=== PATIENT | male | born 1945 | race Caucasian/White ===

== ENCOUNTER → 2017-05-06 | Outpatient (CLI) | payer OTHER ==
[2013-11-06 12:01] VITALS: BP 133/88
--- NOTE | 2017-05-06 11:16 | CT ---
STUDY: CT HEAD WITHOUT CONTRAST HISTORY: Dizziness. Headache, nausea, memory loss. COMPARISON: Head CT dated November 06, 2013. TECHNIQUE: Multiple axial images of the head were obtained from the skull base to the vertex without administration of IV contrast. Automated exposure control (AEC) was utilized to adjust the MA and/o r kV. Findings: The sulci, cisterns and ventricles are age appropriate. There are a few scattered foci of low attenuation in the periventricular and subcortical white matter of both hemispheres. This is a n onspecific finding which likely represents microangiopathic change in a patient of this age. There is no evidence of acute territorial infarction, hemorrhage, mass, mass effect or midline shift . There are no abnormal extra-axial fluid collections. There is no evidence of acute osseous abnormality or significant soft tissue swelling. IMPRESSION: 1. No evidence of acute intracranial abnormality. 2. Nonspecific white matter change as described. 3. If there remains strong clinical concern for acute intracranial abnormality, then an MRI examinat ion should be considered for further evaluation. Reported By:
== END ==
LOC: RAD 08:38
PROVIDERS: ATTEND Internal Medicine
DX: R42 Dizziness and giddiness (principal); G43.909 Migraine, unspecified, not intractable, without status migrainosus; R41.3 Other amnesia
CPT/HCPCS: 70450

== ENCOUNTER 2017-05-26 19:24 | Observation (INO) | payer OTHER ==
[2017-05-26] MEDS ORDERED: ASPIRIN PO ONE (19:28)
--- NOTE | 2017-05-26 19:32 | DR.AMS ---
HPI - Time Seen Time seen: 19:30 - Complaint Cheif Complaint Doctors Comments: patient feeling weak, chest pain and jaw pain after working in 100+ heat index weather.EMS called to house as unresponsive but breathing. Patient took phenergan and some tequila when he came in out of heat. - Reviewed Nurses Notes Reviewed: Yes - Source History Provided: Patient, EMS - Mode of Arrival Mode of Arrival: EMS - Timing Came On: Gradually Symptoms: Improving Symptom Onset: Known - Duration Duration: Constant How lon Duration: Hours - Quality Quality: Decreased Alertness - Severity Severity: Moderate - Context Recent: None - Associated Signs and Symptoms Associated Signs and Symptoms: Generalized Weakness, Decreased LOC - Other History Other History: spine stimulator, Rx: xanax <KARINA STONE - Last Filed: 05/26/17 19:44> PMH - PMH Past Medical History: Anxiety, Coronary Artery Disease, Hypertension Past Surgical History: Yes Surgical History: CABG/Valve Surgery, Other - Social History Do you use any recreational Drugs:: No <KARINA STONE - Last Filed: 05/26/17 19:44> ROS - Review of Systems Constitutional: Weakness Eyes: No Symptoms Reported Respiratoy: No Symptoms Reported Cardiovascular: Chest Pain Gastrointestinal/Abdominal: Nausea Genitourinary: No Symptoms Reported Neurological: Weakness Musculoskeletal: No Symptoms Reported Integumentary: Other (diaphoretic at scene) Hematologic/Lymphatic: No Symptoms Reported Endocrine: No Symptoms Reported Psychiatric: Anxiety <KARINA STONE - Last Filed: 05/26/17 19:44> PE - General Limitations: No Limitations General Appearance: Alert, In No Apparent Distress - Head Head Exam: Normal Inspection - Eyes Eye exam: Normal Appearance, EOMI. negative: Scleral Icterus, Conjunctival Injection - ENT ENT Exam: Normal Exam, Normal Oropharynx External Ear Exam: Normal External Inspection Throat Exam: Normal Inspection - Neck Neck Exam: Normal Inspection, Full ROM, Trachea Midline - Chest Chest Inspection: Normal Inspection - Respiratory Respiratory Exam: Normal Lung Sounds Bilat. negative: Accessory Muscle Use, Respiratory Distress Respiratory Exam: Bilateral Clear to Auscultation - Cardiovascular Cardiovascular Exam: Regular Rate - Abdominal Exam Abdominal Exam: Normal Inspection - Extremities Extremities Exam: Normal Inspection, Full ROM - Back Back Exam: Normal Inspection, Other (spine stimulator) - Neurological Neurological Exam: Alert, Oriented X3, CN II-XII Intact Patient Oriented To: Person, Place, Time Speech: Fluid Speech - Psychological Psychiatric Exam: Anxious Expanded Psychiatric Exam: negative: Poor Eye Contact, Pressured Speech, Echolalia, Psychomotor Agitation, Delusional, Paranoid, Catatonic, Mute, Perseverating, Euphoric, Restlessness, Flight of Ideas, Loose Associations, Uncooperative, Refuses to Answer, Auditory Hallucinations, Visual Hallucinations , Confabulating, Other - Skin Skin Exam: Intact, Normal Color <CHASEKARINA - Last Filed: 05/26/17 19:44> Course - Treatment Treatment: IVF NS bolus - Reevaluation 1st: Improved 2nd: Resolved <SARKIS HAY - Last Filed: 05/26/17 21:38> ROR - EKG Compared to prior EKG Dated: 11/06/14 (no change) Rate: 72 Girard: Normal Rhythm: NSR Block: None Hypertrophy: None ST: Nonsp <CHASEKARINA - Last Filed: 05/26/17 19:44> - Labs Reviewed Result Diagrams: 05/26/17 19:45 05/26/17 19:45 - XRAY XRAY Interpreted by: Both XRAY Findings: Thoracotomy/sternostomy wires. otherwise no acute disease - EKG Girard: Normal Rhythm: NSR Block: None Hypertrophy: None ST: Normal <SARKIS HAY - Last Filed: 05/26/17 21:38> - Labs Reviewed Laboratory: WBC 9.7 X10^3/uL (3.6-10.0) 05/26/17 19:45 RBC 4.73 X10^6/uL (4.7-6.0) 05/26/17 19:45 Hgb 14.9 g/dL (13.5-18.0) 05/26/17 19:45 Hct 43.0 % (42.0-54.0) 05/26/17 19:45 MCV 90.9 fL (80.0-100.0) 05/26/17 19:45 MCH 31.5 pg (27.0-34.0) 05/26/17 19:45 MCHC 34.6 g/dL (33.0-35.0) 05/26/17 19:45 RDW 13.6 % (11.6-16.5) 05/26/17 19:45 Plt Count 129 X10^3/uL (150.0-450.0) L 05/26/17 19:45 MPV 10.0 fL (7.4-11.0) 05/26/17 19:45 Neut % 55.2 % (42.0-75.0) 05/26/17 19:45 Lymph % 33.4 % (21.0-51.0) 05/26/17 19:45 Mobile % 9.4 % (0.0-13.0) 05/26/17 19:45 Eos % 1.6 % (0.9-2.9) 05/26/17 19:45 Baso % 0.4 % (0.2-1.0) 05/26/17 19:45 Neut # 5.4 x10^3/uL (2.2-4.8) H 05/26/17 19:45 Lymph # 3.2 X10^3/uL (1.3-2.9) H 05/26/17 19:45 Mobile # 0.9 x10^3/uL (0.3-0.8) H 05/26/17 19:45 Eos # 0.2 x10^3/uL (0.0-0.2) 05/26/17 19:45 Baso # 0.0 X10^3/uL (0.0-0.1) 05/26/17 19:45 Absolute Nucleated RBC 0.1 /100WBC 05/26/17 19:45 INR Target Range - 05/26/17 19:45 INR 1.08 (0.8-1.3) 05/26/17 19:45 PTT 22.0 SECONDS (22.9-36.5) L 05/26/17 19:45 PTT Comment - 05/26/17 19:45 Sodium 141 mmol/L (136-145) 05/26/17 19:45 Corrected Sodium TNP 05/26/17 19:45 Potassium 3.5 mmol/L (3.5-5.1) 05/26/17 19:45 Chloride 106 mmol/L (98-107) 05/26/17 19:45 Carbon Dioxide 20.2 mmol/L (21-32) L 05/26/17 19:45 BUN 29 mg/dL (7-18) H 05/26/17 19:45 Creatinine 1.80 mg/dL (0.70-1.30) H 05/26/17 19:45 Est GFR (MDRD) Af Amer 48 (>60) L 05/26/17 19:45 Est GFR (MDRD) Non-Af 40 (>60) L 05/26/17 19:45 Glucose 90 mg/dL (65-99) 05/26/17 19:45 Calcium 8.3 mg/dL (8.5-10.1) L 05/26/17 19:45 Corrected Calcium TNP 05/26/17 19:45 Magnesium 1.7 mg/dL (1.7-2.9) 05/26/17 19:45 Total Bilirubin 0.60 mg/dL (0.2-1.0) 05/26/17 19:45 AST 26 Units/L (15-37) 05/26/17 19:45 ALT 37 Units/L (12-78) 05/26/17 19:45 Alkaline Phosphatase 62 Units/L (46-116) 05/26/17 19:45 Creatine Kinase 187 Units/L (39-308) 05/26/17 19:45 CK-MB (CK-2) 1.9 ng/mL (0-4.0) 05/26/17 19:45 CK/CKMB % Calc 1.0 % (<4) 05/26/17 19:45 Troponin I 0.03 ng/mL (0-1.5) 05/26/17 19:45 Total Protein 5.9 g/dL (6.4-8.2) L 05/26/17 19:45 Albumin 3.5 g/dL (3.4-5.0) 05/26/17 19:45 Globulin 2.4 g/dL (2.5-4.5) L 05/26/17 19:45 Albumin/Globulin Ratio 1.5 Ratio (1.1-2.1) 05/26/17 19:45 (SARKIS HAY) <KARINA STONE - Last Filed: 05/26/17 19:44> <SARKIS HAY - Last Filed: 05/26/17 21:38> - Diagnosis Discharge Problem: Heat exhaustion Qualifiers: Encounter type: initial encounter Qualified Code(s): T67.5XXA - Heat exhaustion , unspecified, initial encounter Chest pain Qualifiers: Chest pain type: unspecified Qualified Code(s): R07.9 - Chest pain, unspecified - Discharge Plan Disposition: ADMITTED INPATIENT Condition: Stable
[2017-05-26] MEDS ORDERED: NS 1000 ML 1,000 ML IV ONE (19:37)
[2017-05-26 19:53] LABS: BASOPHILS % (AUTO) 0.4 % (0.2-1.0); EOSINOPHILS # (AUTO) 0.2 x10^3/uL (0.0-0.2); EOSINOPHILS % (AUTO) 1.6 % (0.9-2.9); HEMOGLOBIN 14.9 g/dL (13.5-18.0); LYMPHOCYTES # (AUTO) 3.2 X10^3/uL (1.3-2.9); LYMPHOCYTES % (AUTO) 33.4 % (21.0-51.0); MEAN CORPUSCULAR HEMOGLOBIN 31.5 pg (27.0-34.0); MEAN CORPUSCULAR HGB CONC 34.6 g/dL (33.0-35.0); MEAN CORPUSCULAR VOLUME 90.9 fL (80.0-100.0); MONOCYTES # (AUTO) 0.9 x10^3/uL (0.3-0.8); MONOCYTES % (AUTO) 9.4 % (0.0-13.0); NEUTROPHILS # (AUTO) 5.4 x10^3/uL (2.2-4.8); NEUTROPHILS % (AUTO) 55.2 % (42.0-75.0); PLATELET COUNT 129 X10^3/uL (150.0-450.0); RED BLOOD COUNT 4.73 X10^6/uL (4.7-6.0); RED CELL DISTRIBUTION WIDTH 13.6 % (11.6-16.5); WHITE BLOOD COUNT 9.7 X10^3/uL (3.6-10.0)
--- NOTE | 2017-05-26 20:02 | RAD ---
Chest, one view Indication: Chest pain Comparison: None Findings: The cardiac silhouette is unremarkable. Previous CABG noted. The lungs are clear without f ocal infiltrates or significant pleural effusion. The bony thorax is unremarkable. Impression: No acute cardiopulmonary disease. Reported By:
[2017-05-26 20:09] LABS: BLOOD UREA NITROGEN 29 mg/dL (7-18); CALCIUM 8.3 mg/dL (8.5-10.1); CARBON DIOXIDE 20.2 mmol/L (21-32); CHLORIDE 106 mmol/L (98-107); GLUCOSE 90 mg/dL (65-99); SODIUM 141 mmol/L (136-145); TROPONIN I 0.03 ng/mL (0-1.5); eGFR BLACK RACES 48 (>60); eGFR NON BLACK RACES 40 (>60)
[2017-05-26 20:13] LABS: ALANINE AMINOTRANSFERASE 37 Units/L (12-78); ALBUMIN 3.5 g/dL (3.4-5.0); ALKALINE PHOSPHATASE 62 Units/L (46-116); ASPARTATE AMINO TRANSFERASE 26 Units/L (15-37); CREATINE KINASE 187 Units/L (39-308); CREATINE KINASE MB 1.9 ng/mL (0-4.0); MAGNESIUM 1.7 mg/dL (1.7-2.9); TOTAL PROTEIN 5.9 g/dL (6.4-8.2)
[2017-05-26] MEDS: ZOFRAN INJ 4 MG VIAL IVP PRN ×2 (21:58→21:59)
[2017-05-26 22:14] VITALS: BMI 28.3
[2017-05-27] MEDS: NS 1000 ML 1,000 ML IV SCH ×2 (00:12→11:12)
[2017-05-27 02:29] LABS: CREATINE KINASE MB 2.7 ng/mL (0-4.0); TROPONIN I 0.02 ng/mL (0-1.5)
[2017-05-27 06:13] LABS: BASOPHILS % (AUTO) 0.6 % (0.2-1.0); EOSINOPHILS # (AUTO) 0.2 x10^3/uL (0.0-0.2); EOSINOPHILS % (AUTO) 2.4 % (0.9-2.9); HEMATOCRIT 42.7 % (42.0-54.0); HEMOGLOBIN 14.9 g/dL (13.5-18.0); LYMPHOCYTES # (AUTO) 2.5 X10^3/uL (1.3-2.9); LYMPHOCYTES % (AUTO) 32.8 % (21.0-51.0); MEAN CORPUSCULAR HEMOGLOBIN 31.7 pg (27.0-34.0); MEAN CORPUSCULAR HGB CONC 34.9 g/dL (33.0-35.0); MEAN CORPUSCULAR VOLUME 90.8 fL (80.0-100.0); MEAN PLATELET VOLUME 10.3 fL (7.4-11.0); MONOCYTES # (AUTO) 0.6 x10^3/uL (0.3-0.8); MONOCYTES % (AUTO) 8.1 % (0.0-13.0); NEUTROPHILS # (AUTO) 4.2 x10^3/uL (2.2-4.8); NEUTROPHILS % (AUTO) 56.1 % (42.0-75.0); PLATELET COUNT 138 X10^3/uL (150.0-450.0); RED CELL DISTRIBUTION WIDTH 13.7 % (11.6-16.5); WHITE BLOOD COUNT 7.5 X10^3/uL (3.6-10.0)
[2017-05-27 06:40] LABS: ALANINE AMINOTRANSFERASE 39 Units/L (12-78); ALBUMIN 3.4 g/dL (3.4-5.0); ALKALINE PHOSPHATASE 63 Units/L (46-116); ASPARTATE AMINO TRANSFERASE 26 Units/L (15-37); BLOOD UREA NITROGEN 25 mg/dL (7-18); CALCIUM 7.7 mg/dL (8.5-10.1); CARBON DIOXIDE 24.4 mmol/L (21-32); CHLORIDE 110 mmol/L (98-107); CHOLESTEROL 111 mg/dL (0-200); GLUCOSE 83 mg/dL (65-99); HDL CHOLESTEROL 37 mg/dL (40-60); SODIUM 143 mmol/L (136-145); TOTAL PROTEIN 6.1 g/dL (6.4-8.2); TRIGLYCERIDES 105 mg/dL (0-150); TSH (3RD GENERATION) 1.482 uIU/mL (0.358-3.74); eGFR BLACK RACES > 60 (>60); eGFR NON BLACK RACES > 60 (>60)
[2017-05-27 08:37] LABS: CKMB % 0.8 % (<4); CREATINE KINASE MB 2.4 ng/mL (0-4.0); TROPONIN I 0.02 ng/mL (0-1.5)
[2017-05-27 12:37] VITALS: BP 118/68
--- NOTE | 2017-05-27 14:30 | DR.CARTERS ---
Short Stay Summary - Short Stay Summary for: Short Stay Summary for Date of:: 05/27/17 - Admission Date Date of Admission: 05/26/17 - Discharge Date Discharge Date: 05/27/17 - Admission Diagnoses (1) Chest pain Status: Acute (2) Heat exhaustion Status: Acute (3) Hypotension Status: Chronic - Hospital Course Hospital Course: DAY 1 OF HOSPITAL STAY: IS A 71 YEAR OLD PATIENT OF OURS. 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 PATIENT STATED THAT HE FELT LIKE HE WAS GOING TO PASS OUT, SO THE TOOK A PHENERGAN AND TWO SHOTS OF TEQUILA THINKING THAT IT WOULD MAKE HIM FEEL BETTER. FAMILY CALLED EMS WHEN PATIENT BECAME UNRESPONSIVE. VITALS ON ARRIVAL TO ER WERE 97.5, 72, 20, 98%, 94/56. LABS AND XRAYS WERE OBTAINED IN THE ER AND REPORTED THE FOLLOWING. CBC WNL EXCEPT PLT COUNT 129. CMP WNL EXCEPT CARBON DIOXIDE 20.2, BUN 29, CREATININE 1.80, GFR 40, CALCIUM 8.3, TOTAL PROTEIN 5.9. PTT 22.0. CHEST XRAY WNL. CARDIAC ENZYMES AND EKGS WERE WNL. DUE TO PATIENTS CARDIAC HISTORY, WE ADMITTED PATIENT FOR FURTHER TREATMENT AND EVALUATION. WE PLACED PATIENT ON TELEMETRY, CONTINUED ASPIRIN, AND STARTED PATIENT ON IVF. DAY 2 OF HOSPITAL STAY: PATIENTS CONDITION IMPROVED. PATIENT WAS NOTED WITH NO CHEST PAIN AFTER ADMISSION. PATIENT WAS NOTED WITH NO WEAKNESS, DIZZINESS, OR JAW PAIN. WE OBTAINED LABS AND THEY REPORTED THE FOLLOWING: CBC WNL EXCEPT PLT COUNT 138. CMP WNL EXCEPT CHLORIDE 110, BUN 25, CALCIUM 7.7, TOTAL PROTEIN 6.1, HDL 37. CARDIAC PROFILE AND EKGS WERE WNL. VITALS ON MORNING ROUNDS WERE 97.4, 74, 18, 93, 103/61. WE PLANNED FOR DISCHARGE. INSTRUCTIONS FOR FOLLOW-UP AND MEDICATION WERE DISCUSSED WITH PATIENT AND FAMILY. BOTH VERBALIZED UNDERSTANDING. PATIENT WAS DISCHARGED HOME IN STABLE CONDITION WITH FAMILY. - Discharge Medications Discharge Medications: Alprazolam 1 mg PO HS 05/26/17 [History] Alprazolam 1.5 mg PO DAILY 05/26/17 [History] Aspirin EC [ASPIRIN EC 81 MG *] 81 mg PO DAILY 05/26/17 [History] Diclofenac Sodium 75 mg PO BID PRN 05/26/17 [History] Duloxetine HCl [CYMBALTA 60 MG *] 60 mg PO HS 05/26/17 [History] Levothyroxine Sodium 0.075 mcg PO DAILY 05/26/17 [History] Lisinopril 20 mg PO DAILY 05/26/17 [History] Promethazine HCl [PHENERGAN TAB 25 MG *] 25 mg PO Q8H PRN 05/26/17 [History] Rosuvastatin Calcium 20 mg PO DAILY 05/26/17 [History] - Discharge Plan Disposition: HOME, SELF-CARE Condition: Stable - Follow up/Referrals Follow up/Referrals: Nahum Vega [Primary Care Provider] - 06/04/17 3:20 pm - Instructions Instructions: Chest Wall Pain, [id number], Hypertension, [id number], Heat Illness-SportsMed Additional Instructions: ACTIVITY TOLERATED. DIET TOLERATED. DRINK 2 LITERS OF WATER PER DAY Forms: Patient Portal
== END 2017-05-27 13:45 | disposition home or self-care (01) ==
LOC: ER 19:24 → MED/SURG 20:54
PROVIDERS: ADMIT Internal Medicine; ATTEND Internal Medicine
DX: R07.89 Other chest pain (principal); T67.5XXA Heat exhaustion, unspecified, initial encounter; I95.89 Other hypotension; R53.1 Weakness; R94.4 Abnormal results of kidney function studies; R94.31 Abnormal electrocardiogram [ECG] [EKG]
CPT/HCPCS: 36415; 71010; 80053; 80061; 82550; 82553; 83735; 84443; 84484; 85025; 85610; 85730; 93005; 94760; 96365; 99284; G0378; J2405

== ENCOUNTER → 2017-06-04 | Outpatient (CLI) | payer OTHER ==
[2013-11-06 12:01] VITALS: BP 133/88
--- NOTE | 2017-06-04 12:40 | MRI ---
HISTORY: Dizziness and memory loss. Study: MRI brain with and without contrast. Comparison: CT head dated May 06, 2017. Technique: Multiplanar multi-sequence MRI of the brain was obtained. Sagittal T1, axial T1, axial T 2, axial flair images, coronal T1, sagittal T1 post contrast, coronal T1 postcontrast, axial T1 post contrast images were obtained. 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 This appears unchanged given technique. Otherwise, the midline structures appear in tact. The posterior fossa is unremarkable. The sulcal markings of the brain are normal in their ap pearance. Age related cortical atrophy and chronic small vessel ischemic changes. Otherwise, normal hernández-white differentiation is maintained. No evidence for intraparenchymal hemorrhage or mass can be identified. No extra-axial fluid collections or subarachnoid hematoma can be seen. Evaluation o f the diffusion weighted images demonstrates no evidence for acute ischemic change. The cerebral po ntine angle is normal in its contour without evidence for mass. Remaining ventricular system appear s symmetric and nondilated. Mild mucosal thickening of the left maxillary sinus. Remaining paranasal sinuses and mastoid air cells are clear. Postcontrast enhancement demonstrates no evidence for an enhancing lesion such as mass or vascular m alformation. IMPRESSION: 1. No acute intracranial process. 2. Other chronic findings as above. Reported By:
== END ==
LOC: RAD 09:32
PROVIDERS: ATTEND Internal Medicine
DX: R42 Dizziness and giddiness (principal); R41.3 Other amnesia
CPT/HCPCS: 70553

== ENCOUNTER 2021-05-22 13:07 | Observation (INO) ==
[2021-05-22] MEDS ORDERED: NS 1000 ML 1,000 ML IV STA (13:36)
--- NOTE | 2021-05-22 13:37 | DR.GENAD ---
HPI Time Seen Time Seen by Provider: 05/22/21 13:31 HPI Comment HPI Comment: PATIENT WITH A HISTORY OF CHRONIC HEADACHES X 40 YEARS, OCCURS 2-3 TIMES MONTHLY, CHRONIC LOW BACK PAIN, NONAMBULATORY, HAS PAIN STIMULATOR WHICH HE HAS NOT TURNED ON BECAUSE IT DOES NOT HELP WITH HIS PAIN. HAS NOT TAKEN HIS XANAX FOR POST TRAUMATIC STRESS DISORDER TODAY. COMPLAINS OF A PERSISTENT HEADACHE FOR 5 DAYS. INFORMS THE NURSE IF HE DOESNOT RECEIVE HIS XANAX HE WILL CONTINUE HIS BREATH HOLDING. DENIES BLURRED VISION, NUMBNESS, TINGLING OR WEAKNESS IN EXTREMITIES. Complaint/Symptoms Chief Complaint Doctors Comments: HEADACHE AND CHRONIC LOW BACK PAIN Nurses notes reviewed Nurses Notes Review: Yes Source History Provided: Patient and EMS Mode of Arrival Mode of Arrival: EMS Timing Came on: Gradually Duration Duration: Constant How lon Severity Severity: Severe Modifying Factors Worsens:: NOTHING, HAS NOT TAKE PRESCRIBED MEDICATIONS PMH PMH Past Medical History: Anxiety, Coronary Artery Disease and Hypertension Past Surgical History: Yes Surgical History: CABG/Valve Surgery and Other Family History Family Medical History: Hypertension Social History Do you use any recreational Drugs:: No ROS Review of Systems Constitutional: See HPI Eyes: No Symptoms Reported ENTM: No Symptoms Reported Respiratoy: No Symptoms Reported Cardiovascular: No Symptoms Reported Gastrointestinal/Abdominal: No Symptoms Reported Genitourinary: No Symptoms Reported Neurological: See HPI and Headache Musculoskeletal: Back Pain (SCIATICA RIGHT LEG) Integumentary: No Symptoms Reported Hematologic/Lymphatic: No Symptoms Reported Endocrine: No Symptoms Reported Psychiatric: See HPI (POST TRAUMATIC STRESS DISORDER) All Other Systems: Reviewed and Negative PE Vital Signs Vitals: Temperature 98.1 F Pulse Rate 62 Respiratory Rate 16 Blood Pressure [Left Arm] 118/68 Blood Pressure 141/73 O2 Sat by Pulse Oximetry 98 General Limitations: Physical Limitation General Appearance: Lethargic (APPEARS SLIGHTLY LETHARGIC, ORIENTED X 3, THREATENING WITH BREATH HOLDING IF HE RECEIVES NO XANAX) Eyes Eye exam: Normal Appearance, PERRL and EOMI ENT ENT Exam: Normal Exam External Ear Exam: Normal External Inspection TM/Canal Exam: Bilateral: Normal Mouth Exam: Normal Inspection Neck Neck Exam: Normal Inspection and Full ROM (THERE IS NO POST CERVICAL SPINAL TENDERNESS) Chest Chest Inspection: Normal Inspection and Symmetric Chest Wall Rise Respiratory Respiratory Exam: Normal Lung Sounds Bilat Respiratory Exam: Bilateral: Clear to Auscultation Cardiovascular Cardiovascular Exam: Regular Rate and Normal Rhythm Abdominal Exam Abdominal Exam: Normal Inspection and Normal Bowel Sounds (NONTENDER) Extremities Extremities Exam: Normal Inspection and Full ROM Back Back Exam: Normal Inspection and Tenderness (MINIMAL LUMBAR PARASPINAL TENDERNESS) Neurologic Neurological Exam: Oriented X3 and Normal Gait (NONAMBULATORY) Psychiatric Psychiatric Exam: Flat Affect Skin Skin Exam: Warm and Dry MDM Differential Diagnosis Differential Diagnosis: CHRONIC CEPHALGIA, CHRONIC LOW BACK PAIN, POST TRAUMATIC STRESS DISORDER COURSE Treatment Treatment: IV NORMAL SALINE 100ML/HR, TORADOL 30MG IV, ZOFRAN 4MG, DILAUDID 0.5MG IV Reevaluation 1st: Improved Consultation Call Returned: 16:20 Consultation Comments: DISCUSSED FINDINGS WITH DR OLVERA FOR ADMIT TO OBSERVATION ROR Labs Reviewed Laboratory Results Reviewed?: Yes Result Diagrams: 05/22/21 14:05 05/22/21 14:05 Laboratory: WBC 7.1 X10^3/uL (3.6-10.0) 05/22/21 14:05 RBC 5.62 X10^6/uL (4.7-6.0) 05/22/21 14:05 Hgb 17.8 g/dL (13.5-18.0) 05/22/21 14:05 Hct 52.8 % (42.0-54.0) 05/22/21 14:05 MCV 93.9 fL (80.0-100.0) 05/22/21 14:05 MCH 31.8 pg (27.0-34.0) 05/22/21 14:05 MCHC 33.8 g/dL (33.0-35.0) 05/22/21 14:05 RDW 15.0 % (11.6-16.5) 05/22/21 14:05 Plt Count 169 X10^3/uL (150.0-450.0) 05/22/21 14:05 MPV 9.1 fL (7.4-11.0) 05/22/21 14:05 Neut % (Auto) 64.1 % (42.0-75.0) 05/22/21 14:05 Lymph % (Auto) 26.6 % (21.0-51.0) 05/22/21 14:05 [place] % (Auto) 5.8 % (0.0-13.0) 05/22/21 14:05 Eos % (Auto) 3.1 % (0.9-2.9) H 05/22/21 14:05 Baso % (Auto) 0.4 % (0.2-1.0) 05/22/21 14:05 Neut # (Auto) 4.6 x10^3/uL (2.2-4.8) 05/22/21 14:05 Lymph # (Auto) 1.9 X10^3/uL (1.3-2.9) 05/22/21 14:05 [place] # (Auto) 0.4 x10^3/uL (0.3-0.8) 05/22/21 14:05 Eos # (Auto) 0.2 x10^3/uL (0.0-0.2) 05/22/21 14:05 Baso # (Auto) 0.0 X10^3/uL (0.0-0.1) 05/22/21 14:05 Absolute Nucleated RBC 0.1 /100WBC 05/22/21 14:05 PT 13.2 SECONDS (11.8-14.3) 05/22/21 14:05 INR Target Range - 05/22/21 14:05 INR 1.05 (0.8-1.3) 05/22/21 14:05 Sample Site Rrad 05/22/21 13:53 ABG pH 7.470 (7.35-7.45) H 05/22/21 13:53 ABG pCO2 31.0 mmHg (35.0-45.0) L 05/22/21 13:53 ABG pO2 94.0 mmHg (80.0-100.0) 05/22/21 13:53 ABG HCO3 22.6 mmol/L (22-26) 05/22/21 13:53 ABG O2 Saturation 98.0 % (90-100) 05/22/21 13:53 ABG Base Excess -0.3 mmol/L (-2.0-2.0) 05/22/21 13:53 [place] Test Pos 05/22/21 13:53 A-a Gradient 67.0 mmHg 05/22/21 13:53 FiO2 28.0 05/22/21 13:53 Blood Gas Comments Pt tyrone well elj 05/22/21 13:53 Sodium 143 mmol/L (136-145) 05/22/21 14:05 Corrected Sodium TNP 05/22/21 14:05 Potassium 3.9 mmol/L (3.5-5.1) 05/22/21 14:05 Chloride 106 mmol/L (98-107) 05/22/21 14:05 Carbon Dioxide 25.8 mmol/L (21-32) 05/22/21 14:05 BUN 21 mg/dL (7-18) H 05/22/21 14:05 Creatinine 1.26 mg/dL (0.70-1.30) 05/22/21 14:05 Est GFR (MDRD) Af Amer > 60 (>60) 05/22/21 14:05 Est GFR (MDRD) Non-Af 60 (>60) 05/22/21 14:05 Glucose 96 mg/dL (65-99) 05/22/21 14:05 Calcium 10.7 mg/dL (8.5-10.1) H 05/22/21 14:05 Corrected Calcium TNP 05/22/21 14:05 Total Bilirubin 0.80 mg/dL (0.2-1.0) 05/22/21 14:05 AST 18 Units/L (15-37) 05/22/21 14:05 ALT 33 Units/L (12-78) 05/22/21 14:05 Alkaline Phosphatase 100 Units/L (46-116) 05/22/21 14:05 Total Protein 7.6 g/dL (6.4-8.2) 05/22/21 14:05 Albumin 4.5 g/dL (3.4-5.0) 05/22/21 14:05 Globulin 3.1 g/dL (2.5-4.5) 05/22/21 14:05 Albumin/Globulin Ratio 1.5 Ratio (1.1-2.1) 05/22/21 14:05 Urine Opiates Screen Negative (NEG=<300) 05/22/21 15:15 Urine Methadone Screen Negative (NEG=<300) 05/22/21 15:15 Ur Barbiturates Screen Negative (NEG=<200) 05/22/21 15:15 Ur Phencyclidine Scrn Negative (NEG=<25) 05/22/21 15:15 Ur Amphetamines Screen Negative (NEG=<1000) 05/22/21 15:15 U Benzodiazepines Scrn Positive (NEG=<200) 05/22/21 15:15 Urine Cocaine Screen Negative (NEG=<300) 05/22/21 15:15 U Marijuana (THC) Screen Positive (NEG=<50) A 05/22/21 15:15 XRAY XRAY Interpreted by: Radiologist (HEAD CT SCAN CONSISTENT WITH NO INTRACRANIAL ABNORMALITY, THERE IS A LEFT MAXILLARY RETENTION CYST) EKG Rate: 73 Rhythm: NSR Opioid Opioid Risk Tool Total: 0 Total Score Risk Category: Low Risk Copyright: Osmani MARCOS predicting aberrant behaviors Diagnosis Discharge Problem: Acute intractable headache
[2021-05-22] MEDS ORDERED: NS 1000 ML 1,000 ML ONE (13:53)
[2021-05-22 13:58] LABS: ABG ALLEN TEST POS; ABG BASE EXCESS -0.3 mmol/L (-2.0-2.0); ABG HCO3 22.6 mmol/L (22-26)
[2021-05-22 14:16] LABS: BASOPHILS % (AUTO) 0.4 % (0.2-1.0); EOSINOPHILS # (AUTO) 0.2 x10^3/uL (0.0-0.2); EOSINOPHILS % (AUTO) 3.1 % (0.9-2.9); HEMATOCRIT 52.8 % (42.0-54.0); HEMOGLOBIN 17.8 g/dL (13.5-18.0); LYMPHOCYTES # (AUTO) 1.9 X10^3/uL (1.3-2.9); LYMPHOCYTES % (AUTO) 26.6 % (21.0-51.0); MEAN CORPUSCULAR HEMOGLOBIN 31.8 pg (27.0-34.0); MEAN CORPUSCULAR HGB CONC 33.8 g/dL (33.0-35.0); MEAN CORPUSCULAR VOLUME 93.9 fL (80.0-100.0); MEAN PLATELET VOLUME 9.1 fL (7.4-11.0); MONOCYTES # (AUTO) 0.4 x10^3/uL (0.3-0.8); MONOCYTES % (AUTO) 5.8 % (0.0-13.0); NEUTROPHILS # (AUTO) 4.6 x10^3/uL (2.2-4.8); NEUTROPHILS % (AUTO) 64.1 % (42.0-75.0); PLATELET COUNT 169 X10^3/uL (150.0-450.0); RED BLOOD COUNT 5.62 X10^6/uL (4.7-6.0); WHITE BLOOD COUNT 7.1 X10^3/uL (3.6-10.0)
[2021-05-22 14:27] LABS: ALANINE AMINOTRANSFERASE 33 Units/L (12-78); ALBUMIN 4.5 g/dL (3.4-5.0); ALKALINE PHOSPHATASE 100 Units/L (46-116); ASPARTATE AMINO TRANSFERASE 18 Units/L (15-37); BLOOD UREA NITROGEN 21 mg/dL (7-18); CARBON DIOXIDE 25.8 mmol/L (21-32); CHLORIDE 106 mmol/L (98-107); CREATININE 1.26 mg/dL (0.70-1.30); SODIUM 143 mmol/L (136-145); TOTAL PROTEIN 7.6 g/dL (6.4-8.2); eGFR NON BLACK RACES 60 (>60)
[2021-05-22 14:45] LABS: CALCIUM 10.7 mg/dL (8.5-10.1)
--- NOTE | 2021-05-22 15:00 | RAD ---
HISTORYDYSPNEASTUDYCHEST, 1 VIEWCOMPARISONNoneFINDINGSThe lungs are clear. No pneumothorax or significant effusion.Heart size is normal. The aorta is tortuous; this can be seen with atherosclerosis, hypertension, and aging.Bones are unremarkable.Median sternotomy wires are present.IMPRESSION1. No significant abnormalityElectronically signed by: Pete Ferro (May 22, 2021 14:57:51)
--- NOTE | 2021-05-22 15:05 | CT ---
HISTORYHEADACHESTUDYBRAIN W/O CONCOMPARISONReport only available from MRI brain 06/04/2017.TECHNIQUEMultiple axial images of the head were performed from the skullbase to the vertex using standard departmental protocol. Sagittal and coronal reformatted images were performed. Dose reduction techniques including Automated Exposure Control (AEC) and adjustment of mA and kV were utilized.FINDINGSThe lateral ventricles and basilar cisterns are patent. Previously described dysgenesis of the corpus callosum. Mild low attenuation change in the subcortical and deep supratentorial white matter.No parenchymal mass or hematoma. Sauer-white differentiation appears acutely preserved.No extra-axial collection.The globes are intact.There is a retention cyst in the dependent left maxillary sinus with reactive wall thickening and sclerosis. Mastoid air cells are clear.The calvarium is intact.IMPRESSIONNo acute intracranial abnormality. Mild chronic small vessel disease. 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
[2021-05-22] MEDS ORDERED: TORADOL 30 MG VIAL ONE (15:07)
[2021-05-22] MEDS ORDERED: TORADOL 30 MG VIAL IVP ONE (15:09)
[2021-05-22] MEDS ORDERED: MORPHINE SULFATE INJ 4 MG ONE (15:53)
[2021-05-22] MEDS ORDERED: ZOFRAN INJ 4 MG VIAL ONE (15:53)
[2021-05-22] MEDS ORDERED: DILAUDID INJ IVP ONE (15:53)
[2021-05-22] MEDS ORDERED: ZOFRAN INJ 4 MG VIAL IVP ONE (15:53)
[2021-05-22] MEDS ORDERED: DILAUDID INJ ONE (15:56)
[2021-05-22] MEDS: NS 1000 ML 1,000 ML IV SCH ×2 (17:53→21:42)
[2021-05-22] MEDS: ZOFRAN INJ 4 MG VIAL IVP SCH ×2 (18:03→23:28)
[2021-05-22 18:31] VITALS: BMI 25.8
[2021-05-22] MEDS: NORCO 5/325 MG TAB PO PRN (19:18)
[2021-05-22] MEDS: PHENERGAN TAB 25 MG PO PRN (19:18)
[2021-05-22] MEDS ORDERED: NORCO 5/325 MG TAB PO ONE (21:10)
[2021-05-22] MEDS ORDERED: PHENERGAN INJ 25 MG IM ONE ×2 (21:14→21:33)
[2021-05-22] MEDS: CYMBALTA PO SCH (21:43)
[2021-05-22] MEDS: VISTARIL PO SCH (21:43)
[2021-05-22] MEDS: XANAX PO SCH (21:43)
[2021-05-23] MEDS: ZOFRAN INJ 4 MG VIAL IVP SCH ×4 (05:17→22:49)
[2021-05-23 06:17] LABS: BASOPHILS # (AUTO) 0.1 X10^3/uL (0.0-0.1); BASOPHILS % (AUTO) 0.9 % (0.2-1.0); EOSINOPHILS # (AUTO) 0.3 x10^3/uL (0.0-0.2); EOSINOPHILS % (AUTO) 5.2 % (0.9-2.9); HEMATOCRIT 46.5 % (42.0-54.0); HEMOGLOBIN 15.6 g/dL (13.5-18.0); LYMPHOCYTES # (AUTO) 1.9 X10^3/uL (1.3-2.9); LYMPHOCYTES % (AUTO) 32.3 % (21.0-51.0); MEAN CORPUSCULAR HEMOGLOBIN 31.4 pg (27.0-34.0); MEAN CORPUSCULAR HGB CONC 33.5 g/dL (33.0-35.0); MEAN CORPUSCULAR VOLUME 93.7 fL (80.0-100.0); MEAN PLATELET VOLUME 9.6 fL (7.4-11.0); MONOCYTES # (AUTO) 0.4 x10^3/uL (0.3-0.8); MONOCYTES % (AUTO) 6.1 % (0.0-13.0); NEUTROPHILS # (AUTO) 3.3 x10^3/uL (2.2-4.8); NEUTROPHILS % (AUTO) 55.5 % (42.0-75.0); PLATELET COUNT 164 X10^3/uL (150.0-450.0); RED BLOOD COUNT 4.97 X10^6/uL (4.7-6.0); RED CELL DISTRIBUTION WIDTH 14.7 % (11.6-16.5)
[2021-05-23] MEDS: NS 1000 ML 1,000 ML IV SCH ×3 (06:42→21:01)
[2021-05-23 07:06] LABS: ALANINE AMINOTRANSFERASE 26 Units/L (12-78); ALBUMIN 3.3 g/dL (3.4-5.0); ALKALINE PHOSPHATASE 73 Units/L (46-116); ASPARTATE AMINO TRANSFERASE 17 Units/L (15-37); BLOOD UREA NITROGEN 19 mg/dL (7-18); CALCIUM 8.6 mg/dL (8.5-10.1); CARBON DIOXIDE 24.3 mmol/L (21-32); CHLORIDE 112 mmol/L (98-107); COR CA(FOR HYPOALB) 9.2 mg/dL (8.5-10.1); CREATININE 1.13 mg/dL (0.70-1.30); SODIUM 145 mmol/L (136-145); TOTAL PROTEIN 5.8 g/dL (6.4-8.2); eGFR NON BLACK RACES > 60 (>60)
[2021-05-23] MEDS: CRESTOR TAB 10 MG PO SCH ×2 (08:53→09:01)
[2021-05-23] MEDS: SYNTHROID 75 mcg TAB PO SCH (08:53)
[2021-05-23] MEDS: XANAX PO SCH ×2 (08:55→20:33)
[2021-05-23] MEDS: TOPAMAX PO SCH ×2 (09:56→20:33)
[2021-05-23] MEDS: PHENERGAN TAB 25 MG PO PRN (15:09)
[2021-05-23] MEDS: IMITREX TAB PO PRN ×2 (15:10→22:48)
--- NOTE | 2021-05-23 15:36 | MRI ---
HISTORY: Intractable headache, nausea and disorientationStudy: MRI Brain without contrastComparison: CT 05/22/2020Technique: Multiplanar multi-sequence MRI of the brain was performed with standard departmental protocolFindings:Mild cerebral volume loss. Scattered subcortical and periventricular white matter hyperintensities are nonspecific but can be associated with microvascular ischemic changes. No evidence of mass or intracranial hemorrhage . No restricted diffusion to suggest recent infarction . No extra-axial fluid collections are observed . The ventricular system appears symmetric and nondilated . No cerebellopontine angle mass identified .The T2 flow voids appear normal. There is chronic dysgenesis of the corpus callosum. The soft tissues are intact . The visualized paranasal sinuses and mastoid air cells are clear. Orbits and globes are unremarkableIMPRESSION:No acute intracranial abnormality identified.Mild chronic cerebral volume loss and nonspecific white matter changes likely related to chronic microvascular disease. 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
--- NOTE | 2021-05-23 19:44 | PCM.PROG ---
Progress Note - Progress Note for Day of Date of Exam: 05/23/21 - Subjective Subjective: the patient is a 75-year-old white male was admitted on 05/22/21 secondary to intractable headache. Patient gives history of skull fracture during service. patient states he suffers from chronic headaches and will have headaches that are lasting for days with no improvement of symptoms. States this headache has been ongoing for 5 days. States he can come in the hospital and the medications will help relieve the headache. States headaches will return after medications have been stopped. Patient is unclear on previous medications used for treating headaches. patient states that he has a CPAP that he uses. Does give history of having a sinus see if that has interfered with the use of the CPAP machine. He states that he does have PTSD. does take Xanax routinely. Does give history of chronic low back pain as well. Does have history of a spine stimulator is not working. patient denies any other complaints at this time. Is scheduled for an MRI of head today. - Past Medical Family Social History Past Med/Fam/Surg Hx: No changes since H&P Allergies: Allergies morphine Adverse Reaction (Verified 05/26/17 21:56) - Review of Systems ROS: No change since H&P - Vital Signs and I&O's Vital Signs: Temperature 98.5 F Pulse Rate [Left Brachial] 52 Pulse Rate [Right Radial] 59 Pulse Rate 57 Respiratory Rate 18 Blood Pressure [Left Arm] 132/70 Blood Pressure 140/66 O2 Sat by Pulse Oximetry 95 Intake and Output: Intake & Output 05/20/21 05/21/21 05/22/21 05/23/21 23:59 23:59 23:59 23:59 Intake Total 315 / 315 1839 / 1839 Output Total 320 / 320 Balance 315 / 315 1519 / 1519 - Physical Exam Oriented: Normal, Time, Person, Place Eyes: Normal Ear: Normal Nose: Normal Throat: Normal Respiratory: Normal Cardiovascular: Normal : Normal Auscultation: Bowel Sounds: Normal Palpation: Normal Tenderness: Normal Skin: Normal Musculoskeletal: Back:Lumbar Psychiatric: Normal Mood Description: Calm Affect: Normal Speech Pattern: Clear - Laboratory and Diagnostics Result Diagrams: 05/23/21 04:20 05/23/21 04:20 Labs: Laboratory WBC 6.0 X10^3/uL (3.6-10.0) 05/23/21 04:20 RBC 4.97 X10^6/uL (4.7-6.0) 05/23/21 04:20 Hgb 15.6 g/dL (13.5-18.0) D 05/23/21 04:20 Hct 46.5 % (42.0-54.0) 05/23/21 04:20 MCV 93.7 fL (80.0-100.0) 05/23/21 04:20 MCH 31.4 pg (27.0-34.0) 05/23/21 04:20 MCHC 33.5 g/dL (33.0-35.0) 05/23/21 04:20 RDW 14.7 % (11.6-16.5) 05/23/21 04:20 Plt Count 164 X10^3/uL (150.0-450.0) 05/23/21 04:20 MPV 9.6 fL (7.4-11.0) 05/23/21 04:20 Neut % (Auto) 55.5 % (42.0-75.0) 05/23/21 04:20 Lymph % (Auto) 32.3 % (21.0-51.0) 05/23/21 04:20 Wolfe % (Auto) 6.1 % (0.0-13.0) 05/23/21 04:20 Eos % (Auto) 5.2 % (0.9-2.9) H 05/23/21 04:20 Baso % (Auto) 0.9 % (0.2-1.0) 05/23/21 04:20 Neut # (Auto) 3.3 x10^3/uL (2.2-4.8) 05/23/21 04:20 Lymph # (Auto) 1.9 X10^3/uL (1.3-2.9) 05/23/21 04:20 Wolfe # (Auto) 0.4 x10^3/uL (0.3-0.8) 05/23/21 04:20 Eos # (Auto) 0.3 x10^3/uL (0.0-0.2) H 05/23/21 04:20 Baso # (Auto) 0.1 X10^3/uL (0.0-0.1) 05/23/21 04:20 Absolute Nucleated RBC 0.1 /100WBC 05/23/21 04:20 PT 13.2 SECONDS (11.8-14.3) 05/22/21 14:05 INR Target Range - 05/22/21 14:05 INR 1.05 (0.8-1.3) 05/22/21 14:05 Sample Site Rrad 05/22/21 13:53 ABG pH 7.470 (7.35-7.45) H 05/22/21 13:53 ABG pCO2 31.0 mmHg (35.0-45.0) L 05/22/21 13:53 ABG pO2 94.0 mmHg (80.0-100.0) 05/22/21 13:53 ABG HCO3 22.6 mmol/L (22-26) 05/22/21 13:53 ABG O2 Saturation 98.0 % (90-100) 05/22/21 13:53 ABG Base Excess -0.3 mmol/L (-2.0-2.0) 05/22/21 13:53 Conrado Test Pos 05/22/21 13:53 A-a Gradient 67.0 mmHg 05/22/21 13:53 FiO2 28.0 05/22/21 13:53 Blood Gas Comments Pt tyrone well elj 05/22/21 13:53 Sodium 145 mmol/L (136-145) 05/23/21 04:20 Corrected Sodium TNP 05/23/21 04:20 Potassium 4.5 mmol/L (3.5-5.1) 05/23/21 04:20 Chloride 112 mmol/L (98-107) H 05/23/21 04:20 Carbon Dioxide 24.3 mmol/L (21-32) 05/23/21 04:20 BUN 19 mg/dL (7-18) H 05/23/21 04:20 Creatinine 1.13 mg/dL (0.70-1.30) 05/23/21 04:20 Est GFR (MDRD) Af Amer > 60 (>60) 05/23/21 04:20 Est GFR (MDRD) Non-Af > 60 (>60) 05/23/21 04:20 Glucose 86 mg/dL (65-99) 05/23/21 04:20 Calcium 8.6 mg/dL (8.5-10.1) 05/23/21 04:20 Corrected Calcium 9.2 mg/dL (8.5-10.1) 05/23/21 04:20 Total Bilirubin 0.60 mg/dL (0.2-1.0) 05/23/21 04:20 AST 17 Units/L (15-37) 05/23/21 04:20 ALT 26 Units/L (12-78) 05/23/21 04:20 Alkaline Phosphatase 73 Units/L (46-116) 05/23/21 04:20 Total Protein 5.8 g/dL (6.4-8.2) L 05/23/21 04:20 Albumin 3.3 g/dL (3.4-5.0) L 05/23/21 04:20 Globulin 2.5 g/dL (2.5-4.5) 05/23/21 04:20 Albumin/Globulin Ratio 1.3 Ratio (1.1-2.1) 05/23/21 04:20 Urine Opiates Screen Negative (NEG=<300) 05/22/21 15:15 Urine Methadone Screen Negative (NEG=<300) 05/22/21 15:15 Ur Barbiturates Screen Negative (NEG=<200) 05/22/21 15:15 Ur Phencyclidine Scrn Negative (NEG=<25) 05/22/21 15:15 Ur Amphetamines Screen Negative (NEG=<1000) 05/22/21 15:15 U Benzodiazepines Scrn Positive (NEG=<200) 05/22/21 15:15 Urine Cocaine Screen Negative (NEG=<300) 05/22/21 15:15 U Marijuana (THC) Screen Positive (NEG=<50) A 05/22/21 15:15 - Plan (1) Acute intractable headache Status: Acute Plan: MRI if compatible with spine stimulator. Topamax 25 mg by mouth twice a day. Imitrex 100 mg when necessary (2) Post traumatic stress disorder (PTSD) Status: Acute Plan: continue current mental health medications (3) Low back pain Status: Acute Plan: resume home medications (4) Obstructive sleep apnea on CPAP Status: Acute Plan: utilize CPAP device
[2021-05-23] MEDS: CYMBALTA PO SCH (20:33)
[2021-05-23] MEDS: VISTARIL PO SCH (20:33)
[2021-05-24] MEDS: ZOFRAN INJ 4 MG VIAL IVP SCH ×2 (04:43→12:21)
[2021-05-24 06:09] LABS: BASOPHILS % (AUTO) 0.5 % (0.2-1.0); EOSINOPHILS # (AUTO) 0.4 x10^3/uL (0.0-0.2); EOSINOPHILS % (AUTO) 5.5 % (0.9-2.9); HEMATOCRIT 48.5 % (42.0-54.0); HEMOGLOBIN 16.3 g/dL (13.5-18.0); LYMPHOCYTES # (AUTO) 1.8 X10^3/uL (1.3-2.9); LYMPHOCYTES % (AUTO) 28.3 % (21.0-51.0); MEAN CORPUSCULAR HEMOGLOBIN 31.1 pg (27.0-34.0); MEAN CORPUSCULAR HGB CONC 33.6 g/dL (33.0-35.0); MEAN CORPUSCULAR VOLUME 92.6 fL (80.0-100.0); MEAN PLATELET VOLUME 9.7 fL (7.4-11.0); MONOCYTES # (AUTO) 0.4 x10^3/uL (0.3-0.8); MONOCYTES % (AUTO) 6.5 % (0.0-13.0); NEUTROPHILS # (AUTO) 3.9 x10^3/uL (2.2-4.8); NEUTROPHILS % (AUTO) 59.2 % (42.0-75.0); PLATELET COUNT 179 X10^3/uL (150.0-450.0); RED BLOOD COUNT 5.24 X10^6/uL (4.7-6.0); RED CELL DISTRIBUTION WIDTH 14.4 % (11.6-16.5); WHITE BLOOD COUNT 6.5 X10^3/uL (3.6-10.0)
[2021-05-24 06:15] LABS: ALANINE AMINOTRANSFERASE 26 Units/L (12-78); ALBUMIN 3.4 g/dL (3.4-5.0); ALKALINE PHOSPHATASE 80 Units/L (46-116); ASPARTATE AMINO TRANSFERASE 18 Units/L (15-37); BLOOD UREA NITROGEN 22 mg/dL (7-18); CALCIUM 8.8 mg/dL (8.5-10.1); CARBON DIOXIDE 28.5 mmol/L (21-32); CHLORIDE 111 mmol/L (98-107); CREATININE 1.26 mg/dL (0.70-1.30); SODIUM 145 mmol/L (136-145); TOTAL PROTEIN 6.1 g/dL (6.4-8.2); eGFR NON BLACK RACES 60 (>60)
[2021-05-24] MEDS: XANAX PO SCH (08:36)
[2021-05-24] MEDS: NORCO 5/325 MG TAB PO PRN (08:37)
[2021-05-24] MEDS: CRESTOR TAB 10 MG PO SCH (08:38)
[2021-05-24] MEDS: SYNTHROID 75 mcg TAB PO SCH (08:39)
[2021-05-24] MEDS: TOPAMAX PO SCH (08:40)
[2021-05-24] MEDS: IMITREX TAB PO PRN (08:41)
[2021-05-24 11:56] VITALS: BP 144/78
== END 2021-05-24 12:20 | disposition home or self-care (01) ==
LOC: ER 13:07 → MED/SURG 13:07
PROVIDERS: ADMIT Internal Medicine; ATTEND Internal Medicine
DX: F12.90 Cannabis use, unspecified, uncomplicated; M54.5 Low back pain; R51.9 Headache, unspecified; F43.11 Post-traumatic stress disorder, acute; G47.33 Obstructive sleep apnea (adult) (pediatric)

== ENCOUNTER 2024-02-18 12:55 | Observation (INO) ==
[2024-02-18] MEDS ORDERED: ZOFRAN INJ 4 MG VIAL IVP PRN (13:32)
[2024-02-18 14:06] LABS: BASOPHILS % (AUTO) 0.3 % (0.2-1.0); EOSINOPHILS # (AUTO) 0.1 x10^3/uL (0.0-0.2); EOSINOPHILS % (AUTO) 1.2 % (0.9-2.9); HEMATOCRIT 50.4 % (42.0-54.0); HEMOGLOBIN 16.9 g/dL (13.5-18.0); LYMPHOCYTES # (AUTO) 1.7 X10^3/uL (1.3-2.9); LYMPHOCYTES % (AUTO) 19.7 % (21.0-51.0); MEAN CORPUSCULAR HEMOGLOBIN 30.2 pg (27.0-34.0); MEAN CORPUSCULAR HGB CONC 33.6 g/dL (33.0-35.0); MEAN CORPUSCULAR VOLUME 89.9 fL (80.0-100.0); MEAN PLATELET VOLUME 8.7 fL (7.4-11.0); MONOCYTES # (AUTO) 0.6 x10^3/uL (0.3-0.8); MONOCYTES % (AUTO) 6.8 % (0.0-13.0); NEUTROPHILS # (AUTO) 6.3 x10^3/uL (2.2-4.8); PLATELET COUNT 178 X10^3/uL (150.0-450.0); RED CELL DISTRIBUTION WIDTH 13.8 % (11.6-16.5); WHITE BLOOD COUNT 8.8 X10^3/uL (3.6-10.0)
--- NOTE | 2024-02-18 14:11 | EKG ---
Test Reason : near syncope Blood Pressure : */* mmHG Vent. Rate : 59 BPM Atrial Rate : 59 BPM P-R Int : 198 ms QRS Dur : 92 ms QT Int : 414 ms P-R-T Axes : 33 20 85 degrees QTc Int : 409 ms Sinus bradycardia Otherwise normal ECG No previous ECGs available Confirmed by Adama Carreno MD ([id number] on 02/19/2024 7:22:43 AM Referred By: Confirmed By: Adama Carreno MD
[2024-02-18 14:22] LABS: ALANINE AMINOTRANSFERASE 20 Units/L (12-78); ALKALINE PHOSPHATASE 102 Units/L (46-116); ASPARTATE AMINO TRANSFERASE 17 Units/L (15-37); BLOOD UREA NITROGEN 17 mg/dL (7-18); CALCIUM 9.3 mg/dL (8.5-10.1); CHLORIDE 104 mmol/L (98-107); CREATININE 0.98 mg/dL (0.70-1.30); GLUCOSE 91 mg/dL (65-99); MAGNESIUM 1.8 mg/dL (2.0-2.9); POTASSIUM 4.3 mmol/L (3.5-5.1); SODIUM 142 mmol/L (136-145); TOTAL PROTEIN 7.3 g/dL (6.4-8.2); eGFR NON BLACK RACES > 60 (>60)
[2024-02-18 14:36] VITALS: BMI 24.0
[2024-02-18] MEDS: NS 1,000 ML IV 1,000 ML IV SCH (15:00)
--- NOTE | 2024-02-18 15:21 | RAD ---
EXAM: KUB HISTORY: ABDOMEN PAIN ; COMPARISON: No relevant prior studies available. TECHNIQUE: AP supine projection, FINDINGS: Gas and stool in non-distended colon. Gas in scattered loops of non-distended small bowel. No gross free air. No abnormal calcifications. No acute osseous fracture or dislocation. There is a sclerotic lesion in the right femoral neck Thoracic spinal cord stimulator is noted. Penile implant is noted. IMPRESSION: No acute intra-abdominal abnormality detected. Sclerotic lesion in the right femoral neck of uncertain etiology. MRI with and without contrast may be helpful in further characterization THIS IS AN ELECTRONICALLY VERIFIED FINAL REPORT 02/18/2024 3:18 PM - Electronically signed by Nathen Shankar MD
[2024-02-18 15:29] LABS: BILIRUBIN,URINE NEGATIVE (NEGATIVE); BLOOD/HEMOGLOBIN,URINE 1+ (NEGATIVE); GLUCOSE, URINE NEGATIVE (NEGATIVE); KETONES,URINE 4+ (NEGATIVE); LEUKOCYTE ESTERASE ,URINE 1+ (NEGATIVE); NITRITES,URINE NEGATIVE (NEGATIVE); PROTEIN,URINE 2+ (NEGATIVE); UROBILINOGEN,URINE NORMAL (NORMAL)
[2024-02-18 15:30] LABS: APPEARANCE,URINE CLEAR (CLEAR)
[2024-02-18 15:41] LABS: BACTERIA,URINE NEGATIVE /HPF (NEGATIVE); RBC,URINE 0-2 /HPF (0-3); SQUAMOUS EPITHELIAL CELL,UR RARE /HPF (NEGATIVE)
[2024-02-18 15:48] LABS: COLOR,URINE GREEN (YELLOW)
[2024-02-18] MEDS: TORADOL 15 MG VIAL IVP PRN (16:21)
[2024-02-18] MEDS ORDERED: CONSULT PHARMACY - POTASSIUM & MAGNESIUM XX SCH (17:00)
[2024-02-18] MEDS: NS 1,000 ML IV 1,000 ML with MAGNESIUM SULFATE 50% INJ VIAL 1 G IV SCH (17:33)
--- NOTE | 2024-02-18 18:47 | CT ---
EXAM:BRAIN W/O CONHISTORY:near syncope, dizziness;COMPARISON:05/23/2021.TECHNIQUE: r coronal, and sagittal CT images were generated.FINDINGS:The ventricles and sulci are prominent. There is mild hypodensity in the periventricular white matter compatible with small-vessel ischemic disease. The brain parenchyma otherwise has normal density. There is no sulcal effacement or focal loss of the hernández-white junction to suggest acute infarct. There is no intracranial hemorrhage. There is no mass effect or midline shift. The calvarium is intact. Mastoid air cells and middle ear cavities are clear. There is mucosal thickening in the left maxillary sinus which appears to be chronic. The paranasal sinuses are otherwise clear.IMPRESSION:1. No acute intracranial abnormality.2. Generalized atrophy and mild small-vessel ischemic disease.3. Chronic left maxillary sinusitis.THIS IS AN ELECTRONICALLY VERIFIED FINAL REPORT02/18/2024 6:44 PM - Electronically signed by Dickson Knapp MD
--- NOTE | 2024-02-18 19:08 | CT ---
EXAM:ABDCMEN/PELVIS WITH CONHISTORY:near syncope, dizziness;COMPARISON:None.TECHNIQUE:Foll owing the intravenous administration of iodinated contrast, spiral CT imaging was performed through the abdomen and pelvis and axial, coronal, and sagittal CT images were generated.FINDINGS:Mild dependent basilar atelectasis. No pleural effusion. Heart size is normal. The liver is normal. The gallbladder is normal. Pancreas is normal. The spleen is enlarged at 15.5 cm. The adrenal glands are normal. Kidneys are normal in size and enhancement. There is some renal cortical scarring on the left side. There is no stone or hydronephrosis. The stomach and small bowel are normal. The appendix is normal. The large bowel is normal. Urinary bladder is normal. Prostate measures 4.2 cm in diameter and contains calcifications. There is a penile implant. There is moderate systemic atherosclerosis. There is a nonspecific bone lesion in the proximal right femur.IMPRESSION:1. Splenomegaly.2. Left renal cortical scarring.3. Non-specific bone marrow lesion in the proximal right femur.THIS IS AN ELECTRONICALLY VERIFIED FINAL REPORT02/18/2024 7:05 PM - Electronically signed by Dickson Knapp MD
[2024-02-18] MEDS: READI-CAT 2 ONE (20:04)
[2024-02-18] MEDS: OMNIPAQUE 350 mg/mL 100 mL BTL 100 ML ONE (20:04)
[2024-02-18] MEDS: RESTORIL CAP 15 MG PO PRN (22:46)
[2024-02-19 04:28] VITALS: TEMP 97.8
[2024-02-19 06:09] LABS: BASOPHILS % (AUTO) 0.7 % (0.2-1.0); EOSINOPHILS # (AUTO) 0.3 x10^3/uL (0.0-0.2); EOSINOPHILS % (AUTO) 4.3 % (0.9-2.9); HEMATOCRIT 43.2 % (42.0-54.0); LYMPHOCYTES # (AUTO) 1.6 X10^3/uL (1.3-2.9); LYMPHOCYTES % (AUTO) 25.8 % (21.0-51.0); MEAN CORPUSCULAR HEMOGLOBIN 30.2 pg (27.0-34.0); MEAN CORPUSCULAR HGB CONC 33.8 g/dL (33.0-35.0); MEAN CORPUSCULAR VOLUME 89.3 fL (80.0-100.0); MEAN PLATELET VOLUME 9.1 fL (7.4-11.0); MONOCYTES # (AUTO) 0.4 x10^3/uL (0.3-0.8); MONOCYTES % (AUTO) 6.2 % (0.0-13.0); NEUTROPHILS # (AUTO) 3.9 x10^3/uL (2.2-4.8); PLATELET COUNT 174 X10^3/uL (150.0-450.0); RED BLOOD COUNT 4.83 X10^6/uL (4.7-6.0); RED CELL DISTRIBUTION WIDTH 13.9 % (11.6-16.5); WHITE BLOOD COUNT 6.2 X10^3/uL (3.6-10.0)
[2024-02-19 06:17] LABS: HEMOGLOBIN 14.6 g/dL (13.5-18.0)
[2024-02-19 06:23] LABS: ALANINE AMINOTRANSFERASE 14 Units/L (12-78); ALKALINE PHOSPHATASE 79 Units/L (46-116); ASPARTATE AMINO TRANSFERASE 16 Units/L (15-37); BLOOD UREA NITROGEN 22 mg/dL (7-18); CALCIUM 8.2 mg/dL (8.5-10.1); CHLORIDE 110 mmol/L (98-107); GLUCOSE 97 mg/dL (65-99); POTASSIUM 3.8 mmol/L (3.5-5.1); SODIUM 145 mmol/L (136-145); TOTAL PROTEIN 5.6 g/dL (6.4-8.2); eGFR NON BLACK RACES > 60 (>60)
[2024-02-19] MEDS: NS 1,000 ML IV 1,000 ML IV SCH (08:48)
[2024-02-19 08:56] LABS: AMYLASE 120 Units/L (25-115); LIPASE 59 Units/L (16-77)
[2024-02-19] MEDS ORDERED: MAG-OX TAB PO SCH (09:00)
--- NOTE | 2024-02-19 09:46 | DR.H&P ---
H&P History & Physical for Day of: H&P Date: 02/19/24 Chief Complaint Chief Complaint: Dizziness, headache Abdominal pain Allergies Allergies Allergy/AdvReac Type Severity Reaction Status Date / Time morphine AdvReac Verified 02/18/24 13:46 History of Present Illness History of Present Illness: Patient is a 78-year-old male presenting with dizziness, headache, and abdominal pain. Reports that the abdominal pain has been chronic and going on for almost 20 years. He reports that he does have PTSD and has stated that in the past [facility] believe that his pain has been psychological. He refutes that notion. He reports when he gets abdominal pain and nausea that is when he also starts having headache. Labs/imaging: WBC 6.2, hemoglobin 14.6, platelets 174, sodium 145, potassium 3.8, creatinine 1.00, glucose 97, magnesium 1.8, UA negative, amylase 120, lipase 59, CT of the brain was obtained that revealed left maxillary sinusitis that is chronic. CT abdomen and pelvis was obtained that revealed: 1. Splenomegaly. 2. Left renal cortical scarring. 3. Non-specific bone marrow lesion in the proximal right femur. KUB was obtained that did not reveal any acute intra abdominal findings. General surgery was consulted and will do an EGD this morning. Will keep patient n.p.o. and provide IV antiemetics to help. Patient has IV Toradol as needed for pain. It was noted in patient's room that in urinary container the color of his urine was greenish-blue. It was asked of why to the patient and he admitted that he takes methylene blue for the past 5 months that has been giving him energy. Discussed with patient that is not recommended that he take that anymore and he agreed. It may also be the cause of his nausea. He will discontinue taking the medication when he is discharged. Will continue to closely monitor patient and follow-up labs and EGD results. Past Medical History Past Medical History: Anxiety, Coronary Artery Disease and Hypertension Past Surgical History Surgical History: Angioplasty/Stents, CABG/Valve Surgery and Ortho Surgery Family History Family Medical History: Cancer and Hypertension Social History Does patient currently use any type of tobacco product: No Have you used tobacco products in the last 12 months: No Type of Tobacco Use: None Does any household member use tobacco: No Alcohol Use: None Drug Use: None Medications Home Medications: Home Medications Medication Instructions Recorded Confirmed Type tamsulosin 0.4 mg capsule 0.4 mg PO DAILY 05/22/21 05/22/21 History cyanocobalamin (vitamin B-12) 1 mcg IM MONTHLY 02/18/24 02/18/24 History 1,000 mcg/mL injection solution thyroid (pork) 60 mg tablet 60 mg PO QDAY 02/18/24 02/18/24 History ([place] Thyroid) Labs 02/19/24 05:08 02/19/24 05:08 Labs: Laboratory WBC 6.2 X10^3/uL (3.6-10.0) 02/19/24 05:08 RBC 4.83 X10^6/uL (4.7-6.0) 02/19/24 05:08 Hgb 14.6 g/dL (13.5-18.0) D 02/19/24 05:08 Hct 43.2 % (42.0-54.0) 02/19/24 05:08 MCV 89.3 fL (80.0-100.0) 02/19/24 05:08 MCH 30.2 pg (27.0-34.0) 02/19/24 05:08 MCHC 33.8 g/dL (33.0-35.0) 02/19/24 05:08 RDW 13.9 % (11.6-16.5) 02/19/24 05:08 Plt Count 174 X10^3/uL (150.0-450.0) 02/19/24 05:08 MPV 9.1 fL (7.4-11.0) 02/19/24 05:08 Neut % (Auto) 63.0 % (42.0-75.0) 02/19/24 05:08 Lymph % (Auto) 25.8 % (21.0-51.0) 02/19/24 05:08 [place] % (Auto) 6.2 % (0.0-13.0) 02/19/24 05:08 Eos % (Auto) 4.3 % (0.9-2.9) H 02/19/24 05:08 Baso % (Auto) 0.7 % (0.2-1.0) 02/19/24 05:08 Neut # (Auto) 3.9 x10^3/uL (2.2-4.8) 02/19/24 05:08 Lymph # (Auto) 1.6 X10^3/uL (1.3-2.9) 02/19/24 05:08 [place] # (Auto) 0.4 x10^3/uL (0.3-0.8) 02/19/24 05:08 Eos # (Auto) 0.3 x10^3/uL (0.0-0.2) H 02/19/24 05:08 Baso # (Auto) 0.0 X10^3/uL (0.0-0.1) 02/19/24 05:08 Absolute Nucleated RBC 0.1 /100WBC 02/19/24 05:08 Sodium 145 mmol/L (136-145) 02/19/24 05:08 Corrected Sodium TNP 02/19/24 05:08 Potassium 3.8 mmol/L (3.5-5.1) 02/19/24 05:08 Chloride 110 mmol/L (98-107) H 02/19/24 05:08 Carbon Dioxide 24.0 mmol/L (21-32) 02/19/24 05:08 BUN 22 mg/dL (7-18) H 02/19/24 05:08 Creatinine 1.00 mg/dL (0.70-1.30) 02/19/24 05:08 Est GFR (MDRD) Af Amer > 60 (>60) 02/19/24 05:08 Est GFR (MDRD) Non-Af > 60 (>60) 02/19/24 05:08 Glucose 97 mg/dL (65-99) 02/19/24 05:08 Calcium 8.2 mg/dL (8.5-10.1) L 02/19/24 05:08 Corrected Calcium 9.0 mg/dL (8.5-10.1) 02/19/24 05:08 Magnesium 2.0 mg/dL (2.0-2.9) 02/19/24 05:08 Total Bilirubin 0.40 mg/dL (0.2-1.0) 02/19/24 05:08 AST 16 Units/L (15-37) 02/19/24 05:08 ALT 14 Units/L (12-78) 02/19/24 05:08 Alkaline Phosphatase 79 Units/L (46-116) 02/19/24 05:08 Troponin I High Sens 55.1 ng/L (4.0-60.0) 02/18/24 13:51 Total Protein 5.6 g/dL (6.4-8.2) L 02/19/24 05:08 Albumin 3.0 g/dL (3.4-5.0) L 02/19/24 05:08 Globulin 2.6 g/dL (2.5-4.5) 02/19/24 05:08 Albumin/Globulin Ratio 1.2 Ratio (1.1-2.1) 02/19/24 05:08 Amylase 120 Units/L (25-115) H 02/19/24 05:08 Lipase 59 Units/L (16-77) 02/19/24 05:08 Specimen Type Clean catch urine 02/18/24 13:35 Urine Color Green (YELLOW) 02/18/24 13:35 Urine Appearance Clear (CLEAR) 02/18/24 13:35 Urine pH 5.0 (5.0 - 8.0) 02/18/24 13:35 Ur Specific [place] 1.020 (1.000-1.030) 02/18/24 13:35 Urine Protein 2+ (NEGATIVE) 02/18/24 13:35 Urine Glucose (UA) Negative (NEGATIVE) 02/18/24 13:35 Urine Ketones 4+ (NEGATIVE) 02/18/24 13:35 Urine Blood 1+ (NEGATIVE) 02/18/24 13:35 Urine Nitrite Negative (NEGATIVE) 02/18/24 13:35 Urine Bilirubin Negative (NEGATIVE) 02/18/24 13:35 Urine Urobilinogen Normal (NORMAL) 02/18/24 13:35 Ur Leukocyte Esterase 1+ (NEGATIVE) 02/18/24 13:35 Urine RBC 0-2 /HPF (0-3) 02/18/24 13:35 Urine WBC 0-2 /HPF (0-5) 02/18/24 13:35 Ur Squamous Epith Cells Rare /HPF (NEGATIVE) 02/18/24 13:35 Urine Bacteria Negative /HPF (NEGATIVE) 02/18/24 13:35 Ur Culture Indicated? No/not indicated 02/18/24 13:35 Review of Systems Constitutional: Other (headache) Eyes: No Symptoms Reported ENT: No Symptoms Reported Respiratory: No Symptoms Reported Cardiovascular: No Symptoms Reported Gastrointestinal: Nausea and Abdominal Pain Genitourinary: No Symptoms Reported Musculoskeletal: No Symptoms Reported Skin: No Symptoms Reported Neurological: No Symptoms Reported Physical Exam Vital Signs: Vital Signs Temperature 97.8 F Temperature 97.8 F Pulse Rate [Brachial] 59 Pulse Rate [Brachial] 60 Respiratory Rate 17 Respiratory Rate 20 Blood Pressure [Left Arm] 127/62 Blood Pressure [Left Arm] 112/54 O2 Sat by Pulse Oximetry 97 O2 Sat by Pulse Oximetry 96 Oriented: Normal Eyes: Normal Ear: Normal Nose: Normal Throat: Normal Respiratory: Clear Throughout Cardiovascular: Normal : Normal Auscultation: Bowel Sounds: Normal Palpation: Normal Tenderness: Epigastric and Mild Skin: Normal Musculoskeletal: Normal Psychiatric: Normal Mood Description: Calm and Appropriate Affect: Normal Speech Pattern: Clear and Appropriate Assessment/Plan (1) Acute abdominal pain: Status: Acute Plan: General surgery consulted plan for EGD this morning Keep NPO (2) Headache, acute: Status: Acute Plan: IV toradol prn CT head: chronic maxillary sinusitis Review H&P Reviewed: Yes Patient was examined?: Yes
[2024-02-19] MEDS: D5 LR 1,000 ML 1,000 ML IV ONE (10:00)
[2024-02-19] MEDS ORDERED: LEVSIN/MAALOX/LIDOC VISC PO PRN (10:16)
[2024-02-19] MEDS: DIPRIVAN VIAL 20 ML ONE (10:34)
[2024-02-19] MEDS: PROTONIX INJ 40 MG VIAL IVP SCH (11:04)
[2024-02-19 12:03] VITALS: BP 130/80; PULSE 60; RESP 18; O2SAT 99
[2024-02-19] MEDS ORDERED: CARAFATE PO SCH (14:00)
== END 2024-02-19 12:15 | disposition home or self-care (01) ==
LOC: MED/SURG
PROVIDERS: ADMIT Internal Medicine; ATTEND Internal Medicine